=== PATIENT | male | born 1940 | race Caucasian/White ===

== ENCOUNTER 2016-09-28 10:35 | Outpatient (CLI) | payer MEDICARE, BC ==
[~2016-09-28] VITALS: Ht 180.3 cm; Wt 94.5 kg
--- NOTE | ~2016-09-28 | HEMODYNAMI ---
PATIENT:STEPHEN BHATIA MEDICAL RECORD: [id number] : 36 LOCATION:D.CAT ADMISSION DATE: 09/28/16 Generatedon:09/28/201613:18 Patient name: STEPHEN BHATIA Patient #: [id number] SSN: : 1940 Date of study: 09/28/2016 Page: Of Hemodynamic Procedure Report Patient Data Patient Demographics Procedure consent was obtained First Name: STEPHEN Gender: Male Last Name: SRIRAM : 1940 Middle Initial: E Age: 76 year(s) Patient #: [id number] Race: Unknown Additional ID: [id number] Contact details [address]: [address] [place] [address] State: [place] City: [place] Zip code: [address] Past Medical History Allergies Allergen Reaction Date Comments Reported Betadine 09/28/2016 Sulfa drugs 09/28/2016 Admission Admission Data Admission Date: 09/28/2016 Admission Time: 10:35 Height (in.): 71 BSA: 2.14 (m2) Height (cm.): 180.34 BMI: 29.01 (kg/m2) Weight (lbs.): 208 Weight (kg.): 94.35 Lab Results Lab Result Date: 09/28/2016 Lab Result Time: 0:00 Biochemistry Name Units Result Min Max BUN mg/dl 23 --(----)-* 7 18 Creatinine mg/dl 1.6 --(----)-* 0.6 1.3 CBC Name Units Result Min Max Hemoglobin g/dl 13.4 -*(----)-- 13.5 17.5 Procedure Procedure Types Cath Procedure Diagnostic Procedure [facility] w/Coronaries PCI Procedure Coronary Stent Initial Miscellaneous Procedures Moderate Sedation up to 30 minutes Procedure Description Procedure Date Procedure Date: 09/28/2016 Procedure Start Time: 12:41 Procedure End Time: 13:17 Procedure Staff Name Function Del Powell MD Performing Physician Jr Gagnon RT Scrub Poly Muller RN Nurse Kamar Barker RT Monitor Procedure Data Cath Procedure Fluoroscopy Diagnostic fluoroscopy Total fluoroscopy Time: time: 11.1 min 11.1 min Diagnostic fluoroscopy Total fluoroscopy dose: 929 dose: 929 mGy mGy Contrast Material Contrast Material Type Amount (ml) Isovue 300 185 Entry Location Entry Primary Successful Side Size Upsize Upsize Entry Closure Ewing ccessful Closure Location (Fr) 1 (Fr) 2 (Fr) Remarks Device Remarks Radial Right 6 Fr Mechanical artery Short Compression Estimated blood loss: 10 ml Diagnostic catheters Device Type Used For End Catheter Placement Diagnostic Terumo 5Fr Procedure [place] 110cm catheter Procedure Complications No complications Procedure Medications Medication Administration Route Dosage Oxygen NC 2 l/min Lidocaine 2% added to field 20 Heparin Flush Bag added to field 2 bags (1000units/500ml NS) 0.9% NaCl I.V. 100 ml/hr Radial Cocktail added to field 1 syringe (Verapomil 2mg/Nitro 400mcg/Heparin 1500units) Versed I.V. 1 mg Fentanyl I.V. 50 mcg Radial Cocktail I.A. 1 syringe (Verapomil 2mg/Nitro 400mcg/Heparin 1500units) Versed I.V. 1 mg Fentanyl I.V. 50 mcg Versed I.V. 0.5 mg Fentanyl I.V. 25 mcg Heparin Bolus I.V. 4000 units Integrilin (Bolus I.V. 8.5 ml 2mg/ml) Versed I.V. 0.5 mg Fentanyl I.V. 25 mcg Plavix P.O. 600 mg Hemodynamics Rest BSA: 2.14 (m2) HGB: 13.4 (g/dl) O2 Consumption: Estimated: 229.33 (ml/min) O2 Co nsumption indexed: Estimated:107.16 (ml/min/m) Heart Rate: 51 (bpm) Pressure Samples Time Site Value (mmHg) Purpose Heart Use Rate(bpm) 12:44 LV 21/-14,21 Snapshot 68 12:54 AO 126/65(89) Snapshot 63 Gradients Valve Time Site Site Mean SEP/DFP Peak To Heart Use 1 2 (mmHg) (sec/min) Peak Rate (mmHg) (bpm) Aortic 12:44 LV AO 52 Snapshots Pre Cath Intra NCS Post Cath Vital Signs Time Heart Resp SPO2 NIBP (mmHg) Rhythm Pain Sedation Rate (ipm) (%) Status Level (bpm) 12:26:18 56 17 98 134/74(107) NSR 0 (11) 10(A) , No pain 12:30:34 56 15 100 136/79(100) NSR 0 (11) 10(A) , No pain 12:34:46 59 22 96 125/76(109) NSR 0 (11) 10(A) , No pain 12:39:00 68 17 97 125/72(105) NSR 0 (11) 10(A) , No pain 12:43:16 57 18 100 118/65(95) NSR 0 (11) 9(A) , No pain 12:47:28 59 21 98 114/66(92) NSR 0 (11) 9(A) , No pain 12:51:40 63 23 98 121/64(111) NSR 0 (11) 9(A) , No pain 12:55:54 61 22 100 126/69(102) NSR 0 (11) 9(A) , No pain 13:00:10 58 19 98 119/63(100) NSR 0 (11) 9(A) , No pain 13:04:22 59 24 98 119/71(106) NSR 0 (11) 9(A) , No pain 13:08:34 63 25 99 119/66(92) NSR 0 (11) 9(A) , No pain 13:12:46 61 16 100 122/70(110) NSR 0 (11) 10(A) , No pain 13:16:46 No Cuff NSR 0 (11) 9(A) , No pain Medications Time Medication Route Dose Verified Delivered Reason Note s Effectiveness by by 12:29:34 Oxygen NC 2 l/min Del Pang used for [facility] Muller RN procedure 12:29:42 Lidocaine 2% added 20ml Del Mathis for local to vial [facility] anesthetic field MD CRUZ 12:29:49 Heparin Flush added 2 bags Del Mathis used for Bag to [facility] procedure (1000units/500ml field MD CRUZ NS) 12:30:17 0.9% NaCl I.V. 100 Del Lindseyie Per physician ml/hr [facility] Muller RN, MD 12:30:25 Radial Cocktail added 1 Del Pang (Verapomil to syringe [facility] Muller RN 2mg/Nitro field CRUZ 400mcg/Heparin 1500units) 12:39:08 Versed I.V. 1 mg Del Buffie for sedation [facility] Muller RN, MD 12:39:15 Fentanyl I.V. 50 mcg Del Buffie for sedation [facility] Moody uMller RN, MD 12:42:19 Radial Cocktail I.A. 1 Del Del for (Verapomil syringe [facility] Moody Tovar 2mg/Nitro MD CRUZ 400mcg/Heparin 1500units) 12:42:24 Versed I.V. 1 mg Del Buffie for sedation [facility] Muller RN, MD 12:42:28 Fentanyl I.V. 50 mcg Del Buffie for sedation [facility] Muller RN, MD 12:45:45 Versed I.V. 0.5 mg Del Buffie for sedation [facility] Moody Muller RN, MD 12:45:53 Fentanyl I.V. 25 mcg Del Buffie for sedation [facility] Muller RN, MD 12:50:13 Heparin Bolus I.V. 4000 Del Buffie for veri fied units [facility] Moody Muller RN anticoagulation with dr MD harvey 12:52:34 Integrilin I.V. 8.5 ml Del Buffie for Wast ed (Bolus 2mg/ml) [facility] Moody Muller RN antiplatelet 1.5 ml MD therapy of vial 12:56:35 Versed I.V. 0.5 mg Del Buffie for sedation [facility] Moody Muller RN, MD 12:56:39 Fentanyl I.V. 25 mcg Del Buffie for sedation [facility] Moody Muller RN, MD 13:13:46 Plavix P.O. [address] [facility] Moody Muller RN antiplatelet therapy Procedure Log Time Note 12:00:59 Jr Gagnon RT(R) sent for patient. Start room use. 12:05:40 ACC Patient presents with Stable Angina CCS Anginal Class 2--Slight limitation of ordinary activity. 12:05:47 Diagnostic Cath status Elective 12:06:01 Time tracking: Regular hours 12:06:05 Plan of Care:Hemodynamics will remain stable., Cardiac rhythm will remain stable., Comfort level will be maintained., Respiratory function will remain adequate., Patient/ family verbilizes understanding of procedure., Procedure tolerated without complication., Recovers from procedure without complications.. 12:18:51 Patient received from Pre/Post Procedure Room to CCL 3 Alert and oriented. Tansferred to table in Supine position. 12:18:52 Warm blankets applied, and nazario hugger turned on for patient comfort. 12:18:53 Correct patient and procedure confirmed by team. 12:18:54 Signed procedure consent form obtained from patient. 12:18:55 ECG and BP/O2 sat monitors applied to patient. 12:25:10 Vital chart was started 12::25 Baseline sample Acquired. 12:27:32 Rhythm: sinus bradycardia 12::34 Full Disclosure recording started 12::52 H&P Date Dictated: 09/21/2016 Within 30 days and on chart., H&P Addendum completed by physician on day of procedure. (MUST COMPLETE FOR ALL OUTPATIENTS). 12::53 Pre-procedure instructions explained to patient. 12::53 Pre-op teaching completed and patient verbalized understanding. 12:28:03 Family in waiting room. 12:28:05 Patient NPO since Midnight. 12:28:12 Patient allergic to Betadine 12:28:20 Patient allergic to Sulfa drugs 12:28:29 Is the patient allergic to Iodine/contrast media? Yes. 12:28:33 Was the patient premedicated? Yes 12:28:36 Is patient on blood thinner?No 12:28:40 Patient diabetic? No. 12:28:44 Previous problem with sedation/anesthesia? No ? 12:28:48 Snore? Yes 12:28:49 Sleep apnea? No 12:28:50 Deviated septum? No 12:28:51 Opens mouth fully? Yes 12:28:52 Sticks out tongue? Yes 12:28:57 Airway obstruction? Yes COPD 12:29:08 Dentures? Yes IN 12:29:13 Pre procedure: right dorsailis pedis pulse 1+ Palpable, but thready & weak; easily obliterated 12:29:15 Modified Willam's test Ulnar < 7 seconds 12:29:19 Patient pain scale 0/10 ?. 12:29:27 IV patent on arrival in left forearm with 0.9% NaCl at O. 12:29:31 Lab results completed and on chart. 12::34 Oxygen 2 l/min NC was administered by Poly Muller RN; used for procedure; 12::34 Right Radial & Right Groin area was prepped with chlora-prep and draped in sterile fashion 12:: Alarms reviewed by R. N. 12:: Sharps counted by scrub and verified by R.N. 12:: Use device set Radial Dx 12::40 Tegaderm 4 x 4 opened to sterile field. 12:: Acist Manifold opened to sterile field. 12:: Lidocaine 2% 20ml vial added to field was administered by Del Powell MD; for local anesthetic; 12:: Acist Hand Control opened to sterile field. 12:: Acist Syringe opened to sterile field. 12:: Medline Cath Pack opened to sterile field. 12:: Bag Decanter opened to sterile field. 12:: Terumo 6Fr Slender Glidesheath opened to sterile field. 12:: St Travon 260cm J .035 wire opened to sterile field. 12:29:49 Heparin Flush Bag (1000units/500ml NS) 2 bags added to field was administered by Del Powell MD; used for procedure; 12:30:17 0.9% NaCl 100 ml/hr I.V. was administered by Poly Muller RN; Per physician; 12:30:25 Radial Cocktail (Verapomil 2mg/Nitro 400mcg/Heparin 1500units) 1 syringe added to field was administered by Poly Muller RN; ; 12:32:05 Lab Result : BUN 23 mg/dl 12:32:05 Lab Result : Creatinine 1.6 mg/dl 12:32:05 Lab Result : Hemoglobin 13.4 g/dl 12:32:41 Physician paged 12:32:50 Patient Height : 180.34 cm 12:32:53 Patient Weight : 94.35 kg 12:37:42 Baseline sample Acquired. 12:37:53 Final Timeout: patient, procedure, and site verified with staff and physician. All members of the team are in agreement. 12:37:53 --------ALL STOP TIME OUT------ 12:37:56 Right Radial & Right Groin site verified by team. 12:38:01 Physical assessment completed. ASA score P 3 - A patient with severe systemic disease as per Del Powell MD. 12:38:06 Sedation plan: IV Moderate Sedation Versed, Fentanyl 12:39:08 Versed 1 mg I.V. was administered by Poly Muller RN; for sedation; 12:39:15 Fentanyl 50 mcg I.V. was administered by Poly Muller RN; for sedation; 12:40:58 Zero performed for pressure channel P1 12:41:25 Procedure started. 12:41:29 Local anesthetic to right radial artery with Lidocaine 2% by Del Powell MD.INITIAL ACCESS ONLY 12:41:51 Baseline sample Acquired. 12:42:13 A 6 Fr Short sheath was inserted into the Right Radial artery 12:42:19 Radial Cocktail (Verapomil 2mg/Nitro 400mcg/Heparin 1500units) 1 syringe I.A. was administered by Del Powell MD; for vasodilation; 12:42:24 Versed 1 mg I.V. was administered by Poly Muller RN; for sedation; 12:42:28 Fentanyl 50 mcg I.V. was administered by Poly Muller RN; for sedation; 12:42:38 A Diagnostic Lanxo 5Fr [place] 110cm catheter was advanced over the wire and used for Procedure. 12:44:36 LV angiography performed. 12:44:37 LV gram done using HERNANDEZ 12:44:53 EF : 55 % 12:44:58 LV hemodynamics recorded. 12:45:01 Injector settings: Ml/sec: 7, Volume: 15, 12:45:29 RCA angiography performed. 12:45:44 LCA angiography performed. 12:45:45 Versed 0.5 mg I.V. was administered by Poly Muller RN; for sedation; 12:45:53 Fentanyl 25 mcg I.V. was administered by Poly Muller RN; for sedation; 12:46:04 Baseline sample Acquired. 12:46:52 Zero performed for pressure channel P1 12:46:55 Zero performed for pressure channel P1 12:46:57 Zero performed for pressure channel P1 12:46:59 Zero performed for pressure channel P1 12:47:02 Zero performed for pressure channel P1 12:47:05 Zero performed for pressure channel P1 12:47:08 Zero performed for pressure channel P1 12:50:05 Zero performed for pressure channel P1 12:50:13 Heparin Bolus 4000 units I.V. was administered by Poly Muller RN; for anticoagulation; verified with dr harvey 12:50:36 Merit BasixCompak Inflation Kit opened to sterile field. 12:50:36 Cordis 6FR XBLAD 3.5 guide catheter opened to sterile field. 12:50:37 Urbano Temple 300cm 0.014 guide wire opened to sterile field. 12:50:40 Catheter exchanged over wire. 12:50:50 6 Fr XBLAD 3.5 guide catheter was inserted over the wire 12:52:34 Integrilin (Bolus 2mg/ml) 8.5 ml I.V. was administered by Poly Muller RN; for antiplatelet therapy; Wasted 1.5 ml of vial 12:53:28 Temple wire advanced. 12:54:06 Baseline sample Acquired. 12:56:35 Versed 0.5 mg I.V. was administered by Poly Muller RN; for sedation; 12:56:39 Fentanyl 25 mcg I.V. was administered by Poly Muller RN; for sedation; 12:59:38 The Medtronic Integrity 3.0 X 15 stent was advanced then removed because in body, not inflated 13:00:03 Wire removed, unable to wire LAD. 13:00:51 Guide catheter removed. 13:01:03 Medtronic Launcher 6Fr EBU 4.0 guide catheter opened to sterile field. 13:01:10 6 Fr EBU 4 guide catheter was inserted over the wire 13:04:18 Whisper wire advanced. 13:04:24 Urbano Whisper J 300cm 0.014 guide wire opened to sterile field. 13:06:36 Wire advanced across lesion. 13:07:55 Inflation Number: 1 A Medtronic Integrity 3.0 X 15 stent was prepped and advanced across the Mid LAD. The stent was deployed at 14 WILBERTO for 0:30 (min:sec). 13:08:19 Stent catheter was removed intact over wire. 13:08:20 Wire removed. 13:08:20 Guide catheter removed. 13:08:38 Terumo TR Band Standard opened to sterile field. 13:08:48 Sheath removed intact; hemostasis achieved with Mechanical Compression to the Right Radial artery. 13:08:50 Procedure ended.(Physican Out) 13:09:04 Fluoroscopy time 11.10 minutes. 13:09:11 Flurop Dose total: 929 13:09:12 Fluoroscopy dose: 929 mGy 13:09:16 Contrast amount:Isovue 300 185ml. 13:09:17 Sharps counted by scrub and verified by R.N. 13:09:23 TR band inflated with 12cc of air. 13:09:24 Insertion/operative site no bleeding no hematoma. 13:09:25 Post Procedure Pulses reassessed and unchanged 13::28 Post-procedure physical assessment completed. ASA score P 3 - A patient with severe systemic disease as per Del Powell MD. 13:09:30 Post procedure rhythm: unchanged. 13:09:36 Estimated blood loss: 10 ml 13:09:40 Post procedure instruction explained to patient.Patient verbalizes understanding. 13:09:40 Patient needs reinforcement of post procedure teaching. 13:09:56 Procedure type changed to Cath procedure, Diagnostic procedure, LHC, LHC w/Coronaries, PCI procedure, Coronary Stent Initial, Miscellaneous Procedures, Moderate Sedation up to 30 minutes 13:10:00 Procedure Complication : No complications 13:13:32 Procedure and supply charges have been captured, reviewed, submitted and are correct. 13:13:46 Plavix 600 mg P.O. was administered by Poly Muller RN; for antiplatelet therapy; 13:17:36 Vital chart was stopped 13:17:36 See physician's report for complete and final results. 13:17:38 Report given to Pre/Post Procedure Room. 13:17:41 Patient transfered to Pre/Post Procedure Room with Stretcher. 13:17:43 Procedure ended. 13:17:43 Full Disclosure recording stopped 13:17:48 End room use (Document Last) Intervention Summary Intervention Notes Time ActionType Lesion and Equipment Action# Pressure Duration Attributes Used 12:59:38 Discard Medtronic Stent Integrity 3.0 X 15 stent 13:07:55 Place stent Mid LAD Medtronic 1 14 00:30 Integrity 3.0 X 15 stent Device Usage Item Name Manufacture Quantity Catalog Hospital Part Current Minimal Lot# / Number Charge Number Stock Stock Serial# Code Tegaderm 4 3M 1 [id number] [id number] 412130 5 x 4 Acist Acist 1 21291 772846 146966 002545 5 Manifold Medical [employer] Inc Acist Hand Acist 1 71620 626482 248332 853482 5 Control Medical Systems Inc Acist Acist 1 01895 296363 550653 488149 20 Syringe Medical Systems Inc Medline Cardinal 1 [id number] 546814 47381 621413 5 Cath Pack Health Bag Microtek 1 2002S 290344 30594 338728 5 DecOpenROV [employer] Inc. Terumo 6Fr Terumo 1 [id number] 088344 700043 201574 [address] St Travon 1 228339 017332 076932 429936 30 260cm J .035 wire Diagnostic Terumo 1 [id number] 783599 373471 136515 5 Terumo 5Fr [place] 110cm catheter [facility] 1 [id number] 208729 339587 825872 15 [place] Medical Inflation Kit Cordis 6FR Cardinal 1 [id number] 164373 055854 650732 10 XBLAD 3.5 Health guide catheter Urbano Urbano 1 [id number] 762416 012198 362850 1 Temple Vascular 300cm 0.014 guide wire Medtronic Medtronic 1 [id number] 857854 453952 1 [id number] Integrity 3.0 X 15 stent Medtronic Medtronic 1 [id number] 552437 49309 096793 1 Launcher 6Fr EBU 4.0 guide catheter Urbano Urbano 1 [id number] 576327 344951 760218 5 Whisper J Vascular 300cm 0.014 guide wire Terumo TR Terumo 1 [id number] 116463 078526 623501 40 Band Standard Signature Audit [place] Stage Time Signature Unsigned Intra-Procedure 09/28/2016 Kamar Barker 1:18:22 PM RT(R) Signatures Monitor : Kamar Barker RT Signature : Date : Time : [facility] [address] [facility] [place] [address]
[2016-09-28] MEDS ORDERED: PROAIR HFA8.5 GM INH (10:56)
[2016-09-28] MEDS ORDERED: NORVASC10 MG PO (10:57)
[2016-09-28] MEDS ORDERED: LIPITOR80 MG PO (10:57)
[2016-09-28] MEDS ORDERED: SYMBICORT 16010.2 GM INH (10:58)
[2016-09-28] MEDS ORDERED: WELLBUTRIN XL150 M1 PO (10:58)
[2016-09-28] MEDS ORDERED: KLONOPIN0.5 MG PO (10:59)
[2016-09-28] MEDS ORDERED: CLEOCIN T30 GM TOPICAL (10:59)
[2016-09-28] MEDS ORDERED: TYLENOL W/CODEI1 TAB PO (11:00)
[2016-09-28] MEDS ORDERED: NEURONTIN 300300 MG PO (11:01)
[2016-09-28] MEDS ORDERED: STOOL SOFTENER240 MG PO (11:01)
[2016-09-28] MEDS ORDERED: LIDEX 0.05% OIN15 GM TOPICAL (11:01)
[2016-09-28] MEDS ORDERED: XALATAN 0.0052.5 ML EACH EYE (11:02)
[2016-09-28] MEDS ORDERED: ISOSORBIDE MONO60 M1 PO (11:02)
[2016-09-28] MEDS ORDERED: METOPROLOL TART25 MG PO (11:03)
[2016-09-28] MEDS ORDERED: LEVOXYL150 MCG PO (11:03)
[2016-09-28] MEDS ORDERED: OMEPRAZOLE20 M1 PO (11:04)
[2016-09-28] MEDS ORDERED: BACTROBAN NASAL1 GM NASAL (11:04)
[2016-09-28] MEDS ORDERED: OXYBUTYNIN CHLOR5 MG PO (11:04)
[2016-09-28] MEDS ORDERED: BAYER CHEWABLE81 MG PO ×2 (11:05→13:34)
[2016-09-28] MEDS ORDERED: FLOMAX0.4 MG PO (11:05)
[2016-09-28] MEDS ORDERED: TIMOPTIC 0.5 % O5 ML EACH EYE (11:05)
[2016-09-28 11:12] VITALS: BP 145/66; Ht 180.3 cm; Wt 94.5 kg
[2016-09-28 11:33] LABS: BASOPHILS 0.4 % (0-2); EOSINOPHILS 0.9 % (0-7); HEMATOCRIT 38.6 % (42.0-54.0); HEMOGLOBIN 13.4 g/dL (13.5-17.5); IMMATURE GRANULOCYTES 0.3 % (0-5); LYMPHOCYTES 18.9 % (15-50); MCH 32.1 pg (26.0-34.0); MCHC 34.7 g/dL (31.0-37.0); MCV 92.3 fL (80.0-100.0); MEAN PLATELET VOLUME 10.9 fL (7.4-10.4); MONOCYTES 9.7 % (2-11); NEUTROPHILS 69.8 % (40-80); PLATELET COUNT 197 10x3/uL (130-400); RBC 4.18 10x6/uL (4.20-6.10); WBC 10.6 10x3/uL (4.8-10.8)
[2016-09-28 11:48] LABS: ANION GAP 14.6 mmol/L (8-16); CALCIUM 8.3 mg/dL (8.5-10.1); CARBON DIOXIDE 25.2 mmol/L (21.0-32.0); CREATININE - SERUM 1.6 mg/dL (0.6-1.3); POTASSIUM - SERUM 3.8 mmol/L (3.5-5.1)
--- NOTE | 2016-09-28 13:30 | NUR ---
VSS WITH CHEST PAIN DENIED. TR BAND TO R.WRIST CDI NO BLEEDING NO HEMATOMA NOTED INSTRUCTED PATIENT TO KEEP RUE STRAIGHT NO BENDING OR FLEXING OF WRIST
[2016-09-28] MEDS ORDERED: PLAVIX75 MG PO (13:34)
--- NOTE | 2016-09-28 13:48 | NUR ---
1315 RECIEVED TO ROOM VIA STRETCHER FROM DOCK COORDINATOR WITH REPORTS OF ONE STENT TO THE LAD. TR BAND TO R/WRIST CDI NO BLEEDING NO HEMATOMA NOTED. INSTRUCTED PATIENT TO KEEP RUE STRAIGHT NO BENDING OR FLEXING OF WRIST.
--- NOTE | 2016-09-28 14:14 | NUR ---
SITTING WITH HOB UP 30 DEGREES EATING SANDWICH. VSS WITH CHEST PAIN DENIED. TR BAND TO R/WRIST CDI NO BLEEDING NO HEMATOMA NOTED
--- NOTE | 2016-09-28 14:46 | NUR ---
TALKING TO FRIENDS AT BEDSIDE TR BAND TO R/WRIST CDI NO BLEEDING NO HEMATOMA NOTED. VSS WITH CHEST PAIN DENIED
--- NOTE | 2016-09-28 15:15 | NUR ---
1515 TR BAND REMAINS CDI NO BLEEDING NO HEMATOMA NOTED. VSS
--- NOTE | 2016-09-28 15:44 | NUR ---
RESTING QUIETLY WITH NO DISTRESS NOTED NO CHANGE IN ASSESSMENT
--- NOTE | 2016-09-28 15:55 | NUR ---
2 CC AIR REMOVED FROM TR BAND WITH NO BLEEDING NO HEMATOMA NOTED
--- NOTE | 2016-09-28 16:30 | NUR ---
2 CC AIR REMOVED FROM TR BAND WITH NO BLEEDING NO HEMATOMA NOTED CHEST PAIN IS DENIED WITH VSS
--- NOTE | 2016-09-28 16:39 | NUR ---
PIV REMOVED WITH DRESSING APPLIED. VSS WITH CHEST PAIN DENIED 2 CC AIR REMOVED FROM TR BAND WITH NO BLEEDING NO HEMATOMA NOTED. PATIENT UP TO GET DRESSED FOR DISCHARGE HOME
--- NOTE | 2016-09-28 17:03 | NUR ---
TR BAND REMOVED WITH DRESSING APPLIED. NO BLEEDING NO HEMATOMA NOTED CHEST PAIN IS DENIED. VERBAL AND WRITTEN DISCHARGE GONE OVER WITH PATIENT AND FAMILY. LEFT VIA WC TO PARKING FOR TRANSPORT HOME
--- NOTE | 2016-10-01 10:26 | OP ---
PATIENT NAME: STEPHEN BHATIA MEDICAL RECORD: [id number] :36 LOCATION:D.CAT ADMISSION DATE: SURGEON: MARLENY CHRISTIANSON MD DATE OF OPERATION: 09/28/2016 PROCEDURE: Left heart catheterization, selective coronary angiography, right radial approach. CATHETERS: A 5-Croatian sheath, Weskan catheter. The procedure was well tolerated and proceeded immediately to PTCA stenting of the LAD after the procedure finished. FINDINGS: Left angiography in 30-degree HERNANDEZ view, normal wall motion, normal systolic function. CORONARY ANATOMY: Left main: Left main is free of disease. LAD: The LAD has a diffuse 70%-80% stenosis with takeoff of the first diagonal. CIRCUMFLEX: Codominant system, free of disease. RIGHT CORONARY ARTERY: Again, codominant system, free of disease. IMPRESSION: Single-vessel disease involving left anterior descending. PLAN: Intervention of this vessel momentarily. DESCRIPTION OF PROCEDURE: A 5-Croatian sheath was changed using the indwelling sheath. A XB LAD guiding catheter provided good guide catheter support followed by a Whisper wire was placed across the totally occluded LAD down a portion of vessel. Stent deployed was a 3.0 x 15 mm Integrity nondrug-eluting stent up to 14 atmospheres. Final injection shows excellent resolution of 70% to 80% stenosis, no significant residual. DELBERT flow was 3 throughout the procedure. Plavix was loaded in the lab. Integrilin was used in the case. Sheath closed with ExoSeal device. TRANSINT:[id number] Voice Confirmation ID: [id number] DOCUMENT ID: [id number] MARLENY CHRISTIANSON MD at 1026 CC: [id number] DICTATION DATE: 09/28/16 1313 LICENSED PRACTICAL NURSE CLINIC NURSE: 09/28/16 2148 DEP CLI 09/28/16 [place] [id number]
== END 2016-09-28 17:06 ==
LOC: D.CATH 10:35
PROVIDERS: Internal Medicine Interventional Cardiology
DX: I25.119 Atherosclerotic heart disease of native coronary artery with unspecified angina pectoris (principal); Z01.812 Encounter for preprocedural laboratory examination